=== PATIENT | female | born 1940 | race Caucasian/White ===

== ENCOUNTER 2017-11-28 09:21 | Emergency (ER) | payer MEDICARE, BC ==
--- NOTE | 2017-11-28 09:51 | EDM.PDOC ---
ED HPI GENERAL MEDICAL PROBLEM - General Chief Complaint: Neuro Symptoms/Deficits Stated Complaint: POSSIBLE STROKE Time Seen by Provider: 11/28/17 09:45 Source of Information: Reports: Patient History Limitations: Reports: No Limitations - History of Present Illness INITIAL COMMENTS - FREE TEXT/NARRATIVE: Left facial droop, difficulty with speech since 0800. Denies extremity weakness , no numbness or tingling. No prior h/o CVA or TIA. History of lung CA (non metastatic), received last chemo treatment 11/21/17. Onset Date: 11/28/17 Onset Time: 08:00 Location: Reports: Face Quality: Reports: Other (left facia droop) Severity: Moderate - Related Data Allergies Allergy/AdvReac Type Severity Reaction Status Date / Time ciprofloxacin [From Cipro] Allergy Numbness Verified 11/28/17 09:39 Sulfa (Sulfonamide Allergy Rash Verified 11/28/17 09:39 Antibiotics) Home Meds: Home Meds NK [No Known Home Meds] 11/28/17 [History] Past Medical History Cardiovascular History: Denies: CAD Neurological History: Denies: CVA, TIA Oncologic (Cancer) History: Reports: Lung Social & Family History - Tobacco Use Smoking Status *Q: Former Smoker Used Tobacco, but Quit: Yes Month/Year Tobacco Last Used: 08/02/17 - Caffeine Use Caffeine Use: Reports: Coffee - Alcohol Use Alcohol Use History: No - Recreational Drug Use Recreational Drug Use: No ED ROS GENERAL - Review of Systems Review Of Systems: See Below Constitutional: Reports: No Symptoms HEENT: Reports: No Symptoms Respiratory: Reports: No Symptoms Cardiovascular: Reports: No Symptoms Endocrine: Reports: No Symptoms GI/Abdominal: Reports: No Symptoms Musculoskeletal: Reports: No Symptoms Skin: Reports: No Symptoms Neurological: Reports: Other (left facial droop, no extremity weakness) Psychiatric: Reports: No Symptoms Hematologic/Lymphatic: Reports: No Symptoms Immunologic: Reports: No Symptoms ED EXAM, GENERAL - Physical Exam Exam: See Below Exam Limited By: No Limitations General Appearance: Alert, WD/WN, No Apparent Distress Eye Exam: Bilateral Eye: PERRL Ears: Normal External Exam Nose: Normal Inspection Throat/Mouth: No Airway Compromise Head: Atraumatic, Normocephalic Neck: Supple Respiratory/Chest: No Respiratory Distress, Lungs Clear, Normal Breath Sounds Cardiovascular: Regular Rate, Rhythm, No Gallop, No JVD, No Murmur, No Rub Back Exam: Full Range of Motion Extremities: Normal Range of Motion Neurological: Alert, Oriented, Normal Cognition, Normal Gait (uses walker), No Motor/Sensory Deficits, Other (left facial weakness (forehead not involved), speech slightly slurred, NIHSS score = 3) Psychiatric: Normal Affect, Normal Mood Skin Exam: Warm, Dry, Intact EKG INTERPRETATION EKG Date: 11/28/17 Time: 10:11 Rhythm: NSR Rate (Beats/Min): 91 Curtis: Normal P-Wave: Present QRS: Normal ST-T: Normal QT: Normal EKG Interpretation Comments: No acute ischemia, no arrhythmia Course - Vital Signs Last Recorded V/S: Last Vital Signs Temp 37.2 C 11/28/17 09:30 Pulse Resp 17 11/28/17 10:30 BP 125/67 11/28/17 10:30 Pulse Ox 99 11/28/17 10:30 - Orders/Labs/Meds Orders: Active Orders 24 hr Category Date Time Status Glucose [Blood Glucose Check, Bedside] [RC] ONETIME Care 11/28/17 10:13 Active Head wo Cont [CT] Stat Exams 11/28/17 09:43 Taken INR,PT,PROTHROMBIN TIME [COAG] Stat Lab 11/28/17 10:05 Received PTT,PARTIAL THROMBOPLSTIN TIME [COAG] Stat Lab 11/28/17 10:05 Received Sodium Chloride 0.9% [Saline Flush] Med 11/28/17 09:56 Active 10 ml FLUSH ASDIRECTED PRN Saline Lock Insert [OM.PC] Routine Oth 11/28/17 09:56 Ordered EKG 12 Lead [EK] Stat Ther 11/28/17 09:44 Ordered Medication Orders Sodium Chloride (Saline Flush) 10 ml FLUSH ASDIRECTED PRN PRN Reason: Keep Vein Open Labs: Laboratory Tests 11/28/17 11/28/17 Range/Units 10:05 10:05 WBC 3.0 L (4.5-12.0) X10-3/uL RBC 2.66 L (3.23-5.20) x10(6)uL Hgb 7.8 L (11.5-15.5) g/dL Hct 23.9 L (30.0-51.3) % MCV 89.8 (80-96) fL MCH 29.3 (27.7-33.6) pg MCHC 32.6 (32.2-35.4) g/dL RDW 18.5 H (11.5-15.5) % Plt Count 67 L (125-369) X10(3)uL MPV 7.8 (7.4-10.4) fL Add Manual Diff Yes Neutrophils % (Manual) 65 (46-82) % Band Neutrophils % 3 (0-6) % Lymphocytes % (Manual) 20 (13-37) % Monocytes % (Manual) 8 (4-12) % Eosinophils % (Manual) 4 (0-5) % Anisocytosis Few Sodium 138 (135-145) mmol/L Potassium 4.2 (3.5-5.3) mmol/L Chloride 102 (100-110) mmol/L Carbon Dioxide 27 (21-32) mmol/L BUN 15 (7-18) mg/dL Creatinine 0.6 (0.55-1.02) mg/dL Est Cr Clr Drug Dosing 58.10 mL/min Estimated GFR (MDRD) > 60 (>60) BUN/Creatinine Ratio 25.0 H (9-20) Glucose 73 L (80-116) mg/dL Calcium 9.2 (8.6-10.2) mg/dL Meds: Medications Generic Name Dose Route Start Last Admin Trade Name Freq PRN Reason Stop Dose Admin Sodium Chloride 10 ml 11/28/17 09:56 Saline Flush FLUSH ASDIRECTED PRN Keep Vein Open Discontinued Medications Generic Name Dose Route Start Last Admin Trade Name Freq PRN Reason Stop Dose Admin Aspirin 324 mg 11/28/17 10:35 Aspirin PO 11/28/17 10:36 ONETIME ONE - Radiology Interpretation Free Text/Narrative:: Head CT w/o contrast: No acute infarct. Chronic appearing lacunar infarcts. No hemorrhage, mass effect or edema (per Dr. Salmeron) CT Results Date: 11/28/17 CT Results Time: 10:20 - Re-Assessments/Exams Free Text/Narrative Re-Assessment/Exam: 11/28/17 10:41 Platelets <100,000, therefore patient is excluded from receiving tPA. Dr. Gonzalez accepts patient for transfer to [facility] ED. Departure - Departure Time of Disposition: 10:42 Disposition: DC/Tfer to Acute Hospital 02 Condition: Serious Clinical Impression: Ischemic cerebrovascular accident (CVA) - Discharge Information *PRESCRIPTION DRUG MONITORING PROGRAM REVIEWED*: No *COPY OF PRESCRIPTION DRUG MONITORING REPORT IN PATIENT LUPE: Not Applicable Referrals: Carlos Garrison MD [Primary Care Provider] - Forms: ED Department Discharge Additional Instructions: Patient transferred to [facility] ED by ALS ground in stable condition, Dr. Lisa barajas. - My Orders Last 24 Hours: My Active Orders 11/28/17 09:43 Head wo Cont [CT] Stat 11/28/17 09:44 EKG 12 Lead [EK] Stat 11/28/17 09:56 Sodium Chloride 0.9% [Saline Flush] 10 ml FLUSH ASDIRECTED PRN Saline Lock Insert [OM.PC] Routine 11/28/17 10:05 INR,PT,PROTHROMBIN TIME [COAG] Stat PTT,PARTIAL THROMBOPLSTIN TIME [COAG] Stat 11/28/17 10:13 Glucose [Blood Glucose Check, Bedside] [RC] ONETIME - Assessment/Plan Last 24 Hours: My Active Orders 11/28/17 09:43 Head wo Cont [CT] Stat 11/28/17 09:44 EKG 12 Lead [EK] Stat 11/28/17 09:56 Sodium Chloride 0.9% [Saline Flush] 10 ml FLUSH ASDIRECTED PRN Saline Lock Insert [OM.PC] Routine 11/28/17 10:05 INR,PT,PROTHROMBIN TIME [COAG] Stat PTT,PARTIAL THROMBOPLSTIN TIME [COAG] Stat 11/28/17 10:13 Glucose [Blood Glucose Check, Bedside] [RC] ONETIME
[2017-11-28] MEDS ORDERED: Sodium Chloride 0.9% 10 ML Syringe FLUSH PRN (09:56)
[2017-11-28] MEDS ORDERED: Aspirin 81 MG Tab.Chew PO ONE (10:35)
--- NOTE | 2017-11-28 11:52 | CT ---
INDICATION: Left facial droop. CT HEAD WITHOUT CONTRAST: Serial contiguous 2.5 and 5 mm sections were obtained through the brain without contrast, 11/28/2017. No comparisons were available. Total exam DLP = 950.31 mGy-cm. No shift of midline structures or ventricular abnormalities were identified. No evidence of bleeding site, such as hemorrhage or subdural hematoma was seen. Calcifications are noted in the vertebral and internal carotid arteries. There appear to be lacunar infarcts in the left basal ganglia and at the anterior limb of the left internal capsule. Also noted are patchy areas of decreased density in the white matter, compatible with mild to moderate microvascular disease, although other cause of leukoencephalopathy cannot be excluded. No finding to strongly suggest an acute thrombotic CVA was seen. No cranial abnormality was noted. Mastoid air cells and paranasal sinuses appear to be well-aerated. IMPRESSION: 1. No definite acute intracranial abnormality. 2. Probable lacunar infarcts in the left basal ganglia and more prominently the anterior limb of the left internal capsule. 3. Calcifications are noted in the vertebral and internal carotid arteries. 4. Low density abnormalities are noted scattered about the white matter, compatible with moderate microvascular disease, although other cause of leukoencephalopathy cannot be excluded. Report was called to Dr. Garcia at 1004 hours on 11/28/2017. [facility]
== END 2017-11-28 11:05 ==
LOC: FB.ED 09:21
DX: I63.9 Cerebral infarction, unspecified (principal); Z88.2 Allergy status to sulfonamides; Z88.1 Allergy status to other antibiotic agents; Z87.891 Personal history of nicotine dependence
CPT/HCPCS: 36415; 70450; 80048; 82962; 85025; 85610; 85730; 93005; 99285; A9270-GY; J7050